=== PATIENT | female | born 1985 | race Two or more races ===

== ENCOUNTER 2019-06-17 12:06 | Emergency (ER) | payer SELFPAY ==
[~2019-06-17] VITALS: Ht 157.5 cm; Wt 95.3 kg
[2019-06-17 15:22] VITALS: BP 125/85
== END 2019-06-17 15:29 | disposition home or self-care (01) ==
LOC: ER 12:12
DX: J06.9 Acute upper respiratory infection, unspecified (principal)
CPT/HCPCS: 71046

== ENCOUNTER 2021-03-24 14:27 | Emergency (ER) | payer SELFPAY ==
[~2021-03-24] VITALS: Ht 157.5 cm; Wt 90.7 kg
[2021-03-24 17:14] VITALS: BP 114/76
[2021-03-24] MEDS ORDERED: methylPREDNISolone SOD SUCC 125 MG/2 ML VL IM ONE (17:45)
== END 2021-03-24 18:36 | disposition home or self-care (01) ==
LOC: ER 14:28
DX: T78.40XA Allergy, unspecified, initial encounter (principal); X58.XXXA Exposure to other specified factors, initial encounter
CPT/HCPCS: 96372; 99283; J2930

== ENCOUNTER 2022-02-16 11:53 | Emergency (ER) | payer MEDICAID ==
[~2022-02-16] VITALS: Ht 157.5 cm; Wt 100.0 kg
[2022-02-16] MEDS ORDERED: EPINEPHrine HCL 1 MG/1 ML AMP SC ONE (14:15)
[2022-02-16] MEDS ORDERED: methylPREDNISolone SOD SUCC 125 MG/2 ML VL IM ONE (14:15)
[2022-02-16 15:01] VITALS: BP 143/87
[2022-02-16] MEDS ORDERED: HYDR50CA PO (15:03)
[2022-02-16] MEDS ORDERED: PRED20TA2 PO (15:03)
== END 2022-02-16 15:06 | disposition home or self-care (01) ==
LOC: ER 11:53
DX: T78.40XA Allergy, unspecified, initial encounter (principal); Z90.89 Acquired absence of other organs; Z79.899 Other long term (current) drug therapy; Y92.89 Other specified places as the place of occurrence of the external cause
CPT/HCPCS: 96372; 99284; J0171; J2930

== ENCOUNTER 2022-03-23 13:19 | Emergency (ER) | payer MEDICAID ==
[~2022-03-23] VITALS: Ht 157.5 cm; Wt 100.0 kg
[~2022-03-23 13:19] MED LIST: HYDR50CA PO; PRED20TA2 PO
[2022-03-23 14:44] VITALS: BP 122/71
[2022-03-23] MEDS ORDERED: IBUP800T27 PO (15:42)
[2022-03-23] MEDS ORDERED: CLIN300C8 PO (15:42)
[2022-03-23] MEDS ORDERED: IBUPROFEN 800 MG TAB PO ONE (15:45)
== END 2022-03-23 15:56 | disposition home or self-care (01) ==
LOC: ER 13:19
DX: K02.9 Dental caries, unspecified (principal); Z90.89 Acquired absence of other organs; Z79.1 Long term (current) use of non-steroidal anti-inflammatories (NSAID); Z79.2 Long term (current) use of antibiotics; Z79.899 Other long term (current) drug therapy

== ENCOUNTER 2022-12-06 16:33 | Emergency (ER) | payer SELFPAY ==
[~2022-12-06] VITALS: Ht 157.5 cm; Wt 104.8 kg
[~2022-12-06 16:33] MED LIST changes: +CLIN300C70 PO; +IBUP-1456 PO
[2022-12-06 19:02] VITALS: BP 124/81
[2022-12-06] MEDS ORDERED: BENZOCAINE (DENTAL) 20 % SPRAY 60ML MT ONE (19:45)
[2022-12-06] MEDS ORDERED: AMOX875T4 PO (19:45)
[2022-12-06] MEDS ORDERED: ACET500T58 PO (19:45)
[2022-12-06] MEDS ORDERED: cefTRIAXone SOD 1,000 MG VL IM ONE (19:45)
== END 2022-12-06 20:15 | disposition home or self-care (01) ==
LOC: ER 16:33
DX: S02.5XXA Fracture of tooth (traumatic), initial encounter for closed fracture (principal); F41.9 Anxiety disorder, unspecified; Z90.89 Acquired absence of other organs; Z79.899 Other long term (current) drug therapy; X58.XXXA Exposure to other specified factors, initial encounter; Y93.89 Activity, other specified; Y92.89 Other specified places as the place of occurrence of the external cause; Y99.8 Other external cause status
CPT/HCPCS: 96372; 99283; J0696

== ENCOUNTER 2024-12-21 17:05 | Emergency (ER) | payer MEDICAID ==
[~2024-12-21] VITALS: Ht 157.5 cm; Wt 101.7 kg
[~2024-12-21 17:05] MED LIST changes: +ACET500T58 PO; +AMOX875T4 PO; +CLIN1CAP70 PO; -CLIN300C70 PO
--- NOTE | 2024-12-21 17:37 | ED.PDOC ---
GI ASSESSMENT HPI Comments HPI: Poor Historian. Past Medical History: Past Surgical History: 39y F who presents to the ED for chief complaint of diarrhea. - pt states she has been having diarrhea for the past 3-4 days - pt states she has been having 6x episodes of diarrhea daily - pt states today, she noticed blood with mucus in the toilet bowl and came to the ED for further evaluation - pt states the blood was bright red blood in color - pt in the ED, states she feels lightheaded but otherwise denies nausea, vomiting, fever, cough, chills, abdominal pain any associated symptoms - pt denies any changes to diet, recent travel or any recent sick contacts - pt otherwise denies any other symptoms at this time - pt vitals are stable in the ED : 99.2 F, RR 18, 96% 02 sat, heart rate 86 and BP 131/68 past medical history: denies past surgical history: tonsillectomy allergies: codeine, sulfa medications: denies social history: denies tobacco use, denies ETOH use, endorses drug use (marijuana) REVIEW OF SYSTEMS: CONSTITUTIONAL: Denies acute: fever, diaphoresis, chills, generalized weakness. HEAD: Denies acute: headache, photophobia Eyes: Denies acute: Double vision, vision loss, eye pain, eye discharge. EARS: Denies acute: tinnitus, hearing loss, ear discharge, ear pain, THROAT: Denies acute: sore throat, swelling, difficulty swallowing , pain with swallowing, change in voice. NECK: Denies acute: neck pain, neck swelling, stiff neck. HEART: Denies acute : chest pain, palpitations, LUNGS: Denies acute: SOB, wheezing, cough, hemoptysis ABDOMEN: Denies acute: abdominal pain, Nausea, Vomiting, melena , hematemesis, SKIN: Denies acute: rash, redness, lesions, itchiness. EXTREMITIES: Denies acute: calf pain, numbness, tingling, weakness, denies pain in extremity. Denies acute: Low back pain. Neuro: Denies acute: focal neurological deficit, motor or sensory focal neurological deficit, tremors, seizure like activity, confusion, dizziness, change in mental status, loss of bowel or bladder function, cauda equina like symptoms. : Denies acute: dysuria, hematuria, flank pain, increase in urinary frequency. PSYCH: Denies acute: hallucination, suicidal ideation, homicidal ideation. FEMALE: Denies acute: abnormal vaginal bleeding, foul odor, unusual discharge. PHYSICAL EXAM: General: -----no---acute distress, awake and alert. Head: normocephalic, atraumatic. Neck: supple, trachea is midline, no swelling. Throat: Normal phonation. Eyes:, no erythema, no purulent discharge, no proptosis, no icterus. Heart: regular rate, regular rhythm, no significant murmur appreciated. Lungs: no apparent respiratory distress, Able to speak in full sentences. No wheezing, no rhonchi, no crackles. No stridors Clear to auscultation bilaterally. Abdomen: non tender to palpation, non distended, soft, no guarding, no rebound, + bowel sounds. Obese Neuro: Awake, Alert, oriented to name, self, situation, follows commands GCS=15. Speech is normal. Skin: no petechia, no purpura, no cyanosis, non-pale, not jaundice. Lower extremities: --no - Pitting edema no deformity, no focal swelling, no calf TTP. Makes eye contact. moves all four extremities. Face: no apparent facial droop. . Ambulating in the ED independently. ED COURSE: DISCLAIMER: This medical document was created using an electronic medical record system with voice recognition software and computerized dictation system. Although this document has been carefully reviewed, there might still be some phonetic and typographical errors. Occasional wrong-word or "sound-alike" substitutions may have occurred due to the inherent limitations of voice recognition software. The se areas are purely typographical due to imperfections of the software programs and do not reflect any compromise in the patient's medical care. Please read the chart carefully and recognize, using context, where these substitutions have occurred. Chief Complaint: Diarrhea Time Seen by MD: 17:08 Primary Care Provider: MARCELLUSIES PMD Reviewed Notes: Medications, Allergies Allergies: Coded Allergies: NO KNOWN ALLERGIES (Unverified , 03/24/21) Home Meds Active Scripts Ciprofloxacin Hcl (Cipro) 500 Mg Tab, 500 MG PO BID for 7 Days, #14 TAB Prov:KATHRIN LARKIN DO 12/21/24 Amoxicillin & Pot Clavulanate (Amoxicillin/Potassium Cla) 875 Mg Tab, 1 TAB PO BID for 7 Days, #14 TAB 0 Refills Prov:RAYMOND CONLEY 12/06/22 Acetaminophen (Acetaminophen) 500 Mg Tab, 500 MG PO QIDP, #30 TAB 0 Refills Prov:RAYMOND CONLEY 12/06/22 Ibuprofen (Ibuprofen) 800 Mg Tab, 800 MG PO TID PRN, #30 TAB Prov:INA REGAN 03/23/22 Clindamycin Hcl (Clindamycin Hcl) 300 Mg Cap, 300 MG PO QID, #40 CAP Prov:INA REGAN 03/23/22 Prednisone (Prednisone) 20 Mg Tab, 60 MG PO DAILY, #21 MG Prov:INA REGAN 02/16/22 Hydroxyzine Pamoate (Vistaril) 50 Mg Cap, 50 MG PO TID, #30 CAP Prov:INA REGAN 02/16/22 Information Source: Patient Mode of Arrival: Ambulatory Past Medical History PAST MEDICAL HISTORY: Anxiety Surgical History: Tonsillectomy 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 Was a procedure done?: No X-Ray, Labs, Meds, VS Vital Signs Date Time Temp Pulse Resp B/P (MAP) Pulse Ox O2 Delivery O2 Flow Rate FiO2 12/21/24 21:13 98.3 79 18 130/73 (92) 98 98.3 12/21/24 19:27 98.2 72 18 145/73 (97) 95 98.2 12/21/24 17:59 89 18 99 Room Air* 0 21 12/21/24 17:16 99.2 86 18 131/68 (89) 96 99.2 Lab Test 12/21/24 17:34 12/21/24 17:30 12/21/24 17:10 Range/Units White Blood Count 6.8 4.4-10.8 10^3/uL Red Blood Count 4.93 4.0-5.20 10^6/uL Hemoglobin 15.3 12.2-16.2 g/dL Hematocrit 44.0 36.0-46.0 % Mean Corpuscular Volume 89.3 80.0-100.0 fL Mean Corpuscular Hemoglobin 31.0 28.0-32.0 pg Mean Corpuscular Hemoglobin Concent 34.8 32.0-36.0 g/dL Red Cell Distribution Width 13.7 11.8-14.3 % Platelet Count 194 140-450 10^3/uL Mean Platelet Volume 10.1 6.9-10.8 fL Neutrophils (%) (Auto) 65.0 37.0-80.0 % Lymphocytes (%) (Auto) 23.9 10.0-50.0 % Monocytes (%) (Auto) 9.6 0.0-12.0 % Eosinophils (%) (Auto) 1.1 0.0-7.0 % Basophils (%) (Auto) 0.4 0.0-2.0 % Neutrophils # (Auto) 4.4 1.6-8.6 10 ^3/uL Lymphocytes # (Auto) 1.6 0.4-5.4 10 ^3/uL Monocytes # (Auto) 0.7 0-1.3 10 ^3/uL Eosinophils # (Auto) 0.1 0-0.8 10 ^3/uL Basophils # (Auto) 0 0-0.2 10 ^3/uL Nucleated Red Blood Cells 0.0 % Sodium Level 141 136-145 mmol/L Potassium Level 4.6 3.5-5.1 mmol/L Chloride Level 107 98-107 mmol/L Carbon Dioxide Level 25 20-31 mmol/L Anion Gap 9 5-15 Blood Urea Nitrogen 10 9-23 mg/dL Creatinine 0.73 0.550-1.02 mg/dL Glomerular Filtration Rate Calc 107 >90 mL/min BUN/Creatinine Ratio 13.7 10.0-20.0 Serum Glucose 95 74-106 mg/dL Lactic Acid Level 0.9 0.4-2.0 mmol/L Calcium Level 10.4 8.7-10.4 mg/dL Total Bilirubin 0.5 0.2-1.0 mg/dL Aspartate Amino Transferase (AST) 33 <34 U/L Alanine Aminotransferase (ALT) 42 H 7-40 U/L Alkaline Phosphatase 87 46-116 U/L Total Protein 7.5 5.7-8.2 g/dL Albumin 5.1 H 3.2-4.8 g/dL Urine Color Yellow Yellow Urine Clarity Hazy H Clear Urine pH 5.5 5.0-9.0 Urine Specific [place] 1.025 1.001-1.035 Urine Protein Negative Negative Urine Ketones Negative Negative Urine Blood Negative Negative /uL Urine Nitrite Negative Negative Urine Bilirubin Negative Negative Urine Urobilinogen Normal Negative mg/dL Urine Leukocyte Esterase 3+ Negative /uL Urine RBC None seen 0 - 4 /hpf Urine Microscopic WBC 13 H 0-5 /HPF Urine Squamous Epithelial Cells Mod <5 /hpf Urine Bacteria Few H None Seen /hpf Urine Mucus Few None Seen Urine Glucose Normal Normal mg/dL Urine Test Negative Negative Stool Occult Blood Negative Negative Stool Occult Blood Sample #3 Negative Stool for White Cells None seen Current Medications Medications (Trade) Dose Ordered Sig/Shy Route Start Time Stop Time Status Last Admin Sodium Chloride 1,000 ml @ 1,000 mls/hr Q1H ONCE IV 12/21/24 17:30 12/21/24 18:29 DC 12/21/24 17:58 Pantoprazole Sodium (Protonix) 40 mg ONCE ONCE IV 12/21/24 17:45 12/21/24 17:46 DC 12/21/24 17:58 Levofloxacin (Levaquin Tablet) 750 mg ONCE ONCE PO 12/21/24 19:15 12/21/24 19:16 DC 12/21/24 19:22 [place] [address] Ph: [phone] DIAGNOSTIC IMAGING Diagnostic Imaging Report : [id number] Signed PATIENT: HARRIS KITCHEN ACCT: [id number] UNIT: [id number] : 1985 LOC: ER ROOM / BED: / AGE / SEX: 39 / F ADM STATUS: REG ER SERVICE 978 ORDERING PHYSICIAN: KATHRIN LARKIN DO PROCEDURE(s): ABPL - CT AB PEL WO CON-NO ORAL OR IV REASON: DIARRHEA ORDER NUMBER(s): [id number], ACCESSION NUMBER(s): [id number] CT SCAN ABDOMEN AND PELVIS WITHOUT CONTRAST CLINICAL HISTORY: DIARRHEA TECHNIQUE: Helical axial images are obtained from the lung bases through the pelvis without oral contrast. No intravenous contrast was administered. Coronal and sagittal reformatted images were generated from thin section reconstructions. One or more of the following radiation dose reduction techniques were used for this examination: automated exposure control, adjustment of the mA and/or kV according to patient size, use of iterative reconstruction technique. COMPARISON: None FINDINGS: LOWER THORAX: Imaged lung bases are grossly clear. ABDOMEN AND PELVIS: Evaluation of visceral and vascular structures is limited due to lack of contrast administration. As visualized, the unenhanced liver demonstrates decreased parenchymal attenuation. No discrete, sizable hepatic lesions as visualized. Cholelithiasis is noted. No gallbladder distention or biliary ductal dilatation. The unenhanced spleen, pancreas and adrenals appear grossly unremarkable. No hydroureteronephrosis or sizable, obstructing urinary tract calculi identified. No evidence of abdominal aortic aneurysm. No evidence of bowel obstruction. Normal caliber appendix. No free intraperitoneal air or fluid identified. Tiny fat containing umbilical hernia. No sizable bladder calculus. No destructive osseous lesions identified. IMPRESSION: No bowel obstruction, free intraperitoneal air/ fluid or sizable inflammatory collections identified on this noncontrast examination. Decreased hepatic parenchymal attenuation which is most commonly secondary to fatty infiltration. Cholelithiasis. ATED BY: FREDDIE YANES MD DICTATED DATE/TIME: 12/21/242142 SIGNED BY: FREDDIE YANES MD SIGNED DATE/TIME: 12/21/242142 CC: Time of 1ST Reevaluation: 21:31 (We are still waiting for the CT scan results. Stool studies are still pending.) Patient Education/Counseling: Diagnosis, Treatment Family Education/Counseling: No Family Present SEPSIS Sepsis Screen Physician Orders Insurance Auditor (12/21/24 ) Ova & Parasite Exam (12/21/24 17:24) Stool Bacterial Culture (12/21/24 17:24) Ct Ab Pel Wo Con-No Oral Or Iv (12/21/24 19:08) Vital Signs Date Time Temp Pulse Resp B/P (MAP) Pulse Ox O2 Delivery O2 Flow Rate FiO2 12/21/24 21:13 98.3 79 18 130/73 (92) 98 98.3 12/21/24 19:27 98.2 72 18 145/73 (97) 95 98.2 12/21/24 17:59 89 18 99 Room Air* 0 21 12/21/24 17:16 99.2 86 18 131/68 (89) 96 99.2 Laboratory Tests Test 12/21/24 17:34 Lactic Acid Level 0.9 mmol/L (0.4-2.0) White Blood Count 6.8 10^3/uL (4.4-10.8) Medications Medications Dose Ordered Sig/Shy Route Start Time Stop Time Status Last Admin Dose Admin Levofloxacin 750 mg ONCE ONCE PO 12/21/24 19:15 12/21/24 19:16 DC 12/21/24 19:22 Pantoprazole Sodium 40 mg ONCE ONCE IV 12/21/24 17:45 12/21/24 17:46 DC 12/21/24 17:58 Sodium Chloride 1,000 ml @ 1,000 mls/hr Q1H ONCE IV 12/21/24 17:30 12/21/24 18:29 DC 12/21/24 17:58 Departure 1 Departure Time of Disposition: 19:08 Impression: Primary Impression: UTI (urinary tract infection) Additional Impression: Diarrhea Disposition: 01 HOME / SELF CARE / HOMELESS Condition: Stable Additional Instructions: Additional instructions: You MUST follow-up with your primary care/family doctor in 1 to 2 days. If you are unable to see your primary care/family doctor, please return to our emergency room for re-assessment and re-evaluation in 1 to 2 days. Return to the emergency room here in our facility or to the nearest ER [facility] if your symptoms change or worsen. CONSULTATIONS: you MUST Follow-up for consultation as soon as possible with: -gastroenterology in 1-2 days. Please call for appointment. You MUST call the consultants office yourself to make an appointment. You may need to arrange that through your insurance and/or your primary/family doctor. If you are unable to see the franchise field consultant in 1 to 2 days, you must return to our emergency room (or any other ER of your choice) for re-assessment and re- evaluation. Adequate fluid hydration. Below is a copy of your radiological report for follow up: [address] [address] Ph: [phone] DIAGNOSTIC IMAGING Diagnostic Imaging Report : [id number] Signed PATIENT: HARRIS KITCHEN ACCT: [id number] UNIT: [id number] : 1985 LOC: ER ROOM / BED: / AGE / SEX: 39 / F ADM STATUS: REG ER SERVICE 07 ORDERING PHYSICIAN: KATHRIN LARKIN DO PROCEDURE(s): ABPL - CT AB PEL WO CON-NO ORAL OR IV REASON: DIARRHEA ORDER NUMBER(s): [id number], ACCESSION NUMBER(s): [id number] CT SCAN ABDOMEN AND PELVIS WITHOUT CONTRAST CLINICAL HISTORY: DIARRHEA TECHNIQUE: Helical axial images are obtained from the lung bases through the pelvis without oral contrast. No intravenous contrast was administered. Coronal and sagittal reformatted images were generated from thin section reconstructions. One or more of the following radiation dose reduction techni ques were used for this examination: automated exposure control, adjustment of the mA and/or kV according to patient size, use of iterative reconstruction technique. COMPARISON: None FINDINGS: LOWER THORAX: Imaged lung bases are grossly clear. ABDOMEN AND PELVIS: Evaluation of visceral and vascular structures is limited due to lack of contrast administration. As visualized, the unenhanced liver demonstrates decreased parenchymal attenuation. No discrete, sizable hepatic lesions as visualized. Cholelithiasis is noted. No gallbladder distention or biliary ductal dilatation. The unenhanced spleen, pancreas and adrenals appear grossly unremarkable. No hydroureteronephrosis or sizable, obstructing urinary tract calculi identified. No evidence of abdominal aortic aneurysm. No evidence of bowel obstruction. Normal caliber appendix. No free intraperitoneal air or fluid identified. Tiny fat containing umbilical hernia. No sizable bladder calculus. No destructive osseous lesions identified. IMPRESSION: No bowel obstruction, free intraperitoneal air/ fluid or sizable inflammatory collections identified on this noncontrast examination. Decreased hepatic parenchymal attenuation which is most commonly secondary to fatty infiltration. Cholelithiasis. ATED BY: FREDDIE YANES MD DICTATED DATE/TIME: 12/21/242142 SIGNED BY: FREDDIE YANES MD SIGNED DATE/TIME: 12/21/242142 CC: e-Prescriptions Ciprofloxacin Hcl (Cipro) 500 Mg Tab 500 MG PO BID for 7 Days, #14 TAB Prov: KATHRIN LARKIN DO 12/21/24 Discharged With: Self Critical Care Note Critical Care Time?: No I personally scribed for KATHRIN LARKIN DO ([facility]) on 12/21/24 at 17:37. Electronically submitted by Vishnu Barros ([facility]). I personally scribed for KATHRIN LARKIN DO ([facility]) on 12/21/24 at 18:43. Electronically submitted by Vishnu Barros ([facility]). I personally scribed for KATHRIN LARKIN DO ([facility]) on 12/21/24 at 22:04. Electronically submitted by Vishnu Barros ([facility]). KATHRIN LARKIN DO Dec 21, 2024 17:37
[2024-12-21] MEDS: PANTOPRAZOLE 40 MG/10 ML VIAL INJ IV ONE (17:58)
[2024-12-21] MEDS: SODIUM CHLORIDE 0.9% 1,000 ML IV ONE (17:58)
[2024-12-21 17:59] VITALS: PULSE 89; RESP 18; O2SAT 99
[2024-12-21 18:05] LABS: Basophils # (auto) 0 10 ^3/uL (0-0.2); Basophils % (auto) 0.4 % (0.0-2.0); Eosinophils # (auto) 0.1 10 ^3/uL (0-0.8); Eosinophils % (auto) 1.1 % (0.0-7.0); Hemoglobin 15.3 g/dL (12.2-16.2); Lymphocytes # (auto) 1.6 10 ^3/uL (0.4-5.4); Lymphocytes % (auto) 23.9 % (10.0-50.0); Mean Corpuscular Hgb Conc. 34.8 g/dL (32.0-36.0); Mean Corpuscular Volume 89.3 fL (80.0-100.0); Monocytes # (auto) 0.7 10 ^3/uL (0-1.3); Monocytes % (auto) 9.6 % (0.0-12.0); Neutrophils # (auto) 4.4 10 ^3/uL (1.6-8.6); Platelet Count (auto) 194 10^3/uL (140-450); Red Blood Cells 4.93 10^6/uL (4.0-5.20); Red Cell Distribution Width 13.7 % (11.8-14.3); White Blood Cell 6.8 10^3/uL (4.4-10.8)
[2024-12-21 18:18] LABS: Alkaline Phosphatase 87 U/L (46-116); Anion Gap 9 (5-15); Aspartate Aminotransferase 33 U/L (<34); BUN/Creatinine Ratio 13.7 (10.0-20.0); Blood Urea Nitrogen 10 mg/dL (9-23); Calcium 10.4 mg/dL (8.7-10.4); Carbon Dioxide 25 mmol/L (20-31); Chloride 107 mmol/L (98-107); Glucose 95 mg/dL (74-106); Potassium 4.6 mmol/L (3.5-5.1); Sodium 141 mmol/L (136-145); Total Protein 7.5 g/dL (5.7-8.2)
[2024-12-21 18:19] LABS: Bilirubin, Total 0.5 mg/dL (0.2-1.0)
[2024-12-21 18:20] LABS: Alanine Aminotransferase 42 U/L (7-40); Albumin 5.1 g/dL (3.2-4.8)
[2024-12-21 19:03] LABS: Urine Bacteria FEW /hpf (None Seen); Urine Blood Negative /uL (Negative); Urine Color Yellow (Yellow); Urine Mucus FEW (None Seen); Urine Protein, UAD Negative (Negative); Urine Specific Gravity 1.025 (1.001-1.035); Urine Squamous Epithelial Cell MOD /hpf (<5); Urine Urobilinogen Normal (Negative); Urine WBC 13 /HPF (0-5); Urine pH 5.5 (5.0-9.0)
[2024-12-21 19:06] LABS: Urine Clarity Hazy (Clear)
[2024-12-21] MEDS: levoFLOXacin 250 MG TAB PO ONE (19:22)
[2024-12-21] MEDS ORDERED: CIPR-173 PO (21:23)
--- NOTE | 2024-12-21 21:45 | DVH ---
CT SCAN ABDOMEN AND PELVIS WITHOUT CONTRAST CLINICAL HISTORY: DIARRHEA TECHNIQUE: Helical axial images are obtained from the lung bases through the pelvis without oral cont rast. No intravenous contrast was administered. Coronal and sagittal reformatted images were generate d from thin section reconstructions. One or more of the following radiation dose reduction techniques were used for this examination: automated exposure control, adjustment of the mA and/or kV according to patient size, use of iterative reconstruction technique. COMPARISON: None FINDINGS: LOWER THORAX: Imaged lung bases are grossly clear. ABDOMEN AND PELVIS: Evaluation of visceral and vascular structures is limited due to lack of contrast administration. As visualized, the unenhanced liver demonstrates decreased parenchymal attenuation. No discrete, siza ble hepatic lesions as visualized. Cholelithiasis is noted. No gallbladder distention or biliary duct al dilatation. The unenhanced spleen, pancreas and adrenals appear grossly unremarkable. No hydroureteronephrosis or sizable, obstructing urinary tract calculi identified. No evidence of abdominal aortic aneurysm. No evidence of bowel obstruction. Normal caliber appendix. No free intraperitoneal air or fluid ident ified. Tiny fat containing umbilical hernia. No sizable bladder calculus. No destructive osseous lesions identified. IMPRESSION: No bowel obstruction, free intraperitoneal air/ fluid or sizable inflammatory collections identified on this noncontrast examination. Decreased hepatic parenchymal attenuation which is most commonly secondary to fatty infiltration. Cholelithiasis.
[2024-12-21 22:22] VITALS: BP 124/83; PULSE 100; RESP 18; TEMP 98.1; O2SAT 98
== END 2024-12-21 22:14 | disposition home or self-care (01) ==
LOC: ER 17:05
DX: N39.0 Urinary tract infection, site not specified (principal); R19.7 Diarrhea, unspecified; F41.9 Anxiety disorder, unspecified; Z90.89 Acquired absence of other organs; Z88.5 Allergy status to narcotic agent; Z88.2 Allergy status to sulfonamides; Z79.52 Long term (current) use of systemic steroids; Z79.899 Other long term (current) drug therapy
CPT/HCPCS: 36415; 74176; 80053; 81001; 81025; 82270; 83605; 85025; 85048; 87045; 87177; 87427; 96361; 96374; 99285; J2470; J7030